=== PATIENT | female | born 2000 | race Hispanic/Latino ===

== ENCOUNTER 2021-07-14 02:54 | Emergency (ER) | payer OTHER ==
[~2021-07-14] VITALS: Ht 154.9 cm; Wt 72.4 kg
[2021-07-14] MEDS ORDERED: LIDOCAINE 1% MDV 20ML VIAL SC ONE (06:15)
[2021-07-14] MEDS ORDERED: BOOSTRIX/ADACEL VACCINE (DIPHTH/PERTUSS/ACELL/TETANUS) 0.5ML SYR IM ONE (06:20)
[2021-07-14] MEDS ORDERED: AUGM500T34 PO (06:33)
[2021-07-14] MEDS ORDERED: AUGMENTIN 875 MG TAB PO ONE (06:35)
[2021-07-14 06:38] VITALS: BP 141/82
[2021-07-14] MEDS ORDERED: IBUP80TA PO (06:52)
== END 2021-07-14 06:52 | disposition home or self-care (01) ==
LOC: M ED 02:54
DX: S61.451A Open bite of right hand, initial encounter (principal); W54.0XXA Bitten by dog, initial encounter; Y92.009 Unspecified place in unspecified non-institutional (private) residence as the place of occurrence of the external cause; Y93.9 Activity, unspecified; Y99.9 Unspecified external cause status

== ENCOUNTER → 2022-07-01 | Outpatient (REF) ==
[~2022-07-01] MED LIST: AUGM500T34 PO; IBUP80TA PO
[2022-07-01 13:25] LABS: RSV AMPLIFICATION NEGATIVE (NEGATIVE)
== END ==
LOC: M LABSMTC 11:45
PROVIDERS: ATTEND Family Medicine
DX: Z11.59 Encounter for screening for other viral diseases (principal)

== ENCOUNTER 2022-11-09 11:31 | Inpatient (IN) | payer OTHER ==
[2022-11-09] VITALS (9 sets, daily range): BP systolic 118–142; BP diastolic 57–80
[~2022-11-09] VITALS: Ht 154.9 cm; Wt 91.7 kg
[2022-11-09] MEDS ORDERED: PRENTAB9 PO (11:47)
[2022-11-09] MEDS ORDERED: HOME MED LIST COMPLETE! XX SCH (12:40)
[2022-11-09] MEDS ORDERED: TRANEXAMIC ACID INJection 1,000 MG in NS 100 ML IV PRN (13:05)
[2022-11-09] MEDS ORDERED: METHYLERGONOVINE MALEATE 0.2MG/ML 1ML VIAL IM PRN (13:05)
[2022-11-09] MEDS ORDERED: OXYTOCIN DRIP 30 UNITS in IV 1 EA IV PRN ×4 (13:05)
[2022-11-09] MEDS ORDERED: LIDOCAINE 1% MDV 20ML VIAL INFIL PRN (13:05)
[2022-11-09 14:05] LABS: HEMATOCRIT 37.9 % (36.0-47.0); HEMOGLOBIN 12.4 g/dl (12.0-15.5); MEAN CORPUSCULAR HEMOGLOBIN 27.5 pg (27.0-33.0); MEAN CORPUSCULAR HGB CONC 32.7 g/dl (32.0-36.5); PLATELET COUNT, AUTOMATED 222 10^3/uL (150-450); RED BLOOD COUNT 4.51 10^6/uL (4.00-5.40); WHITE BLOOD COUNT 10.5 10^3/uL (4.0-10.0)
[2022-11-09] MEDS: miSOPROStol 25MCG 1/4 TABLET PO SCH ×3 (14:10→22:31)
[2022-11-10] VITALS (21 sets, daily range): BP systolic 96–137; BP diastolic 53–79
[2022-11-10] MEDS ORDERED: miSOPROStol 50MCG 1/2 TABLET PO ONE ×3 (06:00→14:35)
[2022-11-10] MEDS: LR 1,000 ML IV SCH ×2 (08:01→20:54)
[2022-11-10] MEDS ORDERED: OXYTOCIN DRIP 30 UNITS in IV 1 EA IV SCH (19:05)
[2022-11-11] VITALS (48 sets, daily range): BP systolic 87–181; BP diastolic 52–97
[2022-11-11] MEDS: LR 1,000 ML IV SCH ×3 (02:05→11:35)
[2022-11-11] MEDS ORDERED: ONDANSETRON 4MG 2ML VIAL IV PRN ×3 (02:25→17:15)
[2022-11-11] MEDS ORDERED: diphenhydrAMINE 50MG/ML VIAL IV PRN (02:25)
[2022-11-11] MEDS ORDERED: EPIDURAL/PCA KEYS XX PRN (02:25)
[2022-11-11] MEDS ORDERED: NALOXONE INJ 0.4MG/1ML VIAL IV PRN (02:25)
[2022-11-11] MEDS ORDERED: LR 500 ML IV PRN (02:25)
[2022-11-11] MEDS: FENTANYL/ROPIVACAINE/NACL BAG 100 ML EPIDURAL SCH ×2 (02:55→13:35)
[2022-11-11] MEDS: ePHEDrine SULFATE 25 MG/5 ML(5MG/ML) SYRINGE IVP PRN ×2 (03:35→07:31)
[2022-11-11] MEDS ORDERED: D5W/0.45% SODIUM CHLORIDE 500 ML IV ONE (11:30)
[2022-11-11 11:49] LABS: HEMATOCRIT 35.5 % (36.0-47.0); HEMOGLOBIN 11.8 g/dl (12.0-15.5); MEAN CORPUSCULAR HEMOGLOBIN 27.8 pg (27.0-33.0); MEAN CORPUSCULAR HGB CONC 33.2 g/dl (32.0-36.5); MEAN CORPUSCULAR VOLUME 83.5 fl (80.0-96.0); PLATELET COUNT, AUTOMATED 204 10^3/uL (150-450); RED BLOOD COUNT 4.25 10^6/uL (4.00-5.40); WHITE BLOOD COUNT 11.9 10^3/uL (4.0-10.0)
[2022-11-11] MEDS ORDERED: D5W/0.9% SODIUM CHLORIDE 1,000 ML IV SCH (12:15)
[2022-11-11] MEDS ORDERED: MOM 30ML SUSPENSION UDC PO PRN (16:25)
[2022-11-11] MEDS ORDERED: DOCUSATE SODIUM 100MG CAPSULE PO PRN (16:25)
[2022-11-11] MEDS ORDERED: OXYTOCIN DRIP 30 UNITS in IV 1 EA IV SCH ×4 (16:25)
[2022-11-11] MEDS ORDERED: IBUPROFEN 600MG TAB PO PRN (16:25)
[2022-11-11] MEDS ORDERED: LR 1,000 ML IV SCH (16:25)
[2022-11-11] MEDS ORDERED: METHYLERGONOVINE MALEATE 0.2 MG TAB PO PRN (16:25)
[2022-11-11] MEDS ORDERED: ANUSOL HC CREAM 30GM TOP PRN (16:25)
[2022-11-11] MEDS ORDERED: RHOGAM 300MCG (1500IU) INJ IM SCH (16:25)
[2022-11-11] MEDS ORDERED: ACETAMINOPHEN TAB 650MG DOSE (2X325MG) PO PRN (16:25)
[2022-11-11 16:30] LABS: CORD GAS ABE A -9.6; CORD GAS HCO3 A 17.3 MMOL/L; CORD GAS O2 SAT A 78.7 %; CORD GAS PCO2 A 41.6 mmHg; CORD GAS PH A 7.238 UNITS; CORD GAS SBC A 16.6 MMOL/L; CORD GAS TCO2 A 18.6 MMOL/L
[2022-11-11 16:31] LABS: CORD GAS ABE V -7.1; CORD GAS HCO3 V 22.5 MMOL/L; CORD GAS PCO2 V 61.9 mmHg; CORD GAS PH V 7.178 UNITS; CORD GAS PO2 V 21.8 mmHg; CORD GAS SBC V 17.4 MMOL/L; CORD GAS TCO2 V 24.4 MMOL/L
[2022-11-11] MEDS ORDERED: METHYLERGONOVINE MALEATE 0.2MG/ML 1ML VIAL IM PRN (16:35)
[2022-11-11] MEDS: IBUPROFEN 800 MG TAB PO PRN (17:19)
[2022-11-12] MEDS: IBUPROFEN 800 MG TAB PO PRN ×2 (04:58→14:55)
[2022-11-12] MEDS: DIBUCAINE 1% OINTMENT 30GM TOP PRN (05:00)
[2022-11-12 06:00] VITALS: BP 114/62; O2SAT 98
[2022-11-12] MEDS: ACETAMINOPHEN 500 MG TAB PO PRN ×2 (08:39→21:36)
[2022-11-12] MEDS ORDERED: PRENATAL VITAMINS CHEWABLE TABLET PO SCH (09:00)
[2022-11-12] MEDS: PRENATAL VITAMINS CHEWABLE TABLET PO SCH (09:11)
[2022-11-12 17:50] VITALS: BP 116/54; O2SAT 96
[2022-11-13] MEDS: IBUPROFEN 800 MG TAB PO PRN ×2 (05:19→12:46)
[2022-11-13] MEDS: DIBUCAINE 1% OINTMENT 30GM TOP PRN (05:19)
[2022-11-13 06:03] VITALS: BP 118/64; O2SAT 99
[2022-11-13] MEDS: ACETAMINOPHEN 500 MG TAB PO PRN (07:23)
[2022-11-13] MEDS: PRENATAL VITAMINS CHEWABLE TABLET PO SCH (07:23)
[2022-11-13] MEDS ORDERED: MEASLES,MUMPS,RUBELLA VACCINE INJ (MMR-II) SC.IMMUN ONE (09:00)
== END 2022-11-13 15:25 | disposition home or self-care (01) | DRG 807 ==
LOC: M LDO 11:31 → M LDI 13:18 → M OBS 11-11 18:35
PROVIDERS: ADMIT Obstetrics & Gynecology; ATTEND Advanced Practice Midwife
PROC: 3E0P7GC Introduction of Other Therapeutic Substance into Female Reproductive, Via Natural or Artificial Opening (ICD-10-PCS; 2022-11-09)
PROC: 10E0XZZ Delivery of Products of Conception, External Approach (ICD-10-PCS; principal; 2022-11-11)
PROC: 0KQM0ZZ Repair Perineum Muscle, Open Approach (ICD-10-PCS; 2022-11-11)
PROC: 10S0XZZ Reposition Products of Conception, External Approach (ICD-10-PCS; 2022-11-11)
PROC: 0HQ9XZZ Repair Perineum Skin, External Approach (ICD-10-PCS; 2022-11-11)
DX: O76 Abnormality in fetal heart rate and rhythm complicating labor and delivery (principal); Z37.0 Single live birth; Z3A.39 39 weeks gestation of pregnancy; O69.1XX0 Labor and delivery complicated by cord around neck, with compression, not applicable or unspecified; O70.1 Second degree perineal laceration during delivery; O70.0 First degree perineal laceration during delivery; O64.0XX0 Obstructed labor due to incomplete rotation of fetal head, not applicable or unspecified